=== PATIENT | female | born 1995 | race Caucasian/White ===

== ENCOUNTER 2018-05-03 14:49 | Emergency (ER) | payer OTHER ==
--- OUTSIDE RECORDS SUMMARY | 2018-05-03 15:08 | XMS REPORT | Continuity of Care Document ---
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 Family History Description No Information Available Social History Type Date Description Comments Sex Unknown ETOH Use Rarely consumes alcohol Tobacco Use Start: Unknown Heavy tobacco smoker (more than 10 cigarettes/day) Smoking Status Reviewed: 04/15/18 Heavy tobacco smoker (more than 10 cigarettes/day) Allergies, Adverse Reactions, Alerts Date Description Reaction Status Severity Comments 12/09/2017 Dayquil Cough & Congestion Active 12/09/2017 NKDA Inactive Medications Medication Date Status Form Strength Qnty SIG Indications Ordering Provider Vimpat 04/15/19 Active Tablets 100mg 120tabs 2 by mouth G40.909 Jomar 19 twice a MD [place] day IUD Active Unknown 00 control Ibuprofen Active Capsules 200mg as needed Unknown 00 Vimpat 01/16/20 Hx Tablets 50mg 90tabs 1 in the G40.219 Jomar 18 - morning MD [place] 04/15/19 and 2 at 19 night Vimpat 12/10/19 Hx Tablets 50mg 120tabs 1 in in G40.219 Jomar 18 - the MD [place] 01/14/20 morning 18 for 1 week then 1 in in the morning and 1 in at night for a week then 1 in in the morning and 2 at night Vimpat 06/15/19 Hx Tablets 100mg 60tabs 1 tablet G40.909 Jomar 18 - by mouth MD [place] 04/15/19 twice 19 daily Immunizations Description No Information Available Vital Signs Date Vital Result Comment 04/15/2018 10:25am Height 65 inches 5'5" Weight 152.00 lb Heart Rate 66 /min BP Systolic 122 mmHg BP Diastolic 70 mmHg BMI (Body Mass Index) 25.3 kg/m2 12/09/2017 3:19pm Height 65 inches 5'5" Weight 155.00 lb Heart Rate 62 /min BP Systolic 106 mmHg BP Diastolic 64 mmHg BMI (Body Mass Index) 25.8 kg/m2 Results Description No Information Available Procedures Date Code Description Status 12/11/2017 25890 EEG Recording Awake & Drowsy Completed Encounters Type Date Location Provider Dx Diagnosis Office Visit 12/09/2017 [facility] Jomar Magana G40.219 Local-rel 3:00p symptc epi w cmplx part seiz, ntrct, w/o stat epi Plan of Treatment Future Appointment(s):07/14/2018 4:00 pm - Jomar Magana MD at [id number]/15/2018 - Jomar Magana MDG40.219 Localization- related (focal) (partial) symptomatic epilepsyComments:Discussed with her that she has difficult to control seizures most likely focal and will increase vimpat to 200mg twice a day but am concerned that she will have perhaps worse side effects with this.If this happens will perhaps try trileptal next and discussed that I think there is a fairly good chance that she will not get complete seizure control on medication and that we need to prove what typeof seizures she is having and where they are coming from and will speak to Dr Washington arrange for video eeg and to see DR Washington. If the seizures are not coming from speech area she may e a candidate forsurgery in the next year or two if medications do not work.Follow up:3 MONTHS
[2018-05-03] MEDS ORDERED: Morphine INJ* 2 MG/ML 1 ML SYRINGE (TWO MG - NEW SYRINGE VERSION) IV ONE (18:25)
[2018-05-03] MEDS ORDERED: Ondansetron INJ* 2 MG/ML VIAL IV ONE (18:25)
[2018-05-03] MEDS ORDERED: Morphine 4 MG/ML VIAL (1 ml) 4 MG/ML VIAL ONE (18:30)
[2018-05-03 18:38] LABS: ABS Basophils 0 10^3/ul (0-0.2); ABS Eosinophils 0.2 10^3/ul (0-0.6); ABS Lymphocytes 3.2 10^3/ul (1.0-4.8); ABS Monocytes 0.5 10^3/ul (0-0.8); ABS Neutrophils 4.4 10^3/ul (1.5-7.7); ABS Nucleated RBC 0 10^3/ul; Hematocrit 43 % (33-41); Hemoglobin 14.4 g/dL (12.0-16.0); Lymphocyte % 38.8 %; Mean Corpuscular HGB Conc 34 g/dL (31-36); Mean Corpuscular Hemoglobin 30 pg (27-31); Mean Corpuscular Volume 88 fL (80-97); Mean Platelet Volume 10.6 fL (7.4-10.4); Nucleated Red Blood Cells % 0.1; Platelet Count 184 10^3/uL (150-450); Red Blood Count 4.83 10^6 /uL (3.70-4.87); Red Cell Distribution Width 14 % (10.5-15); White Blood Count 8.4 10^3/uL (3.5-10.8)
[2018-05-03 18:55] LABS: Urine Appearance Turbid; Urine Bilirubin Negative (Negative); Urine Blood Negative (Negative); Urine Color Amber; Urine Glucose Negative (Negative); Urine Ketones Negative (Negative); Urine Nitrite Negative (Negative); Urine Protein Negative (Negative); Urine Specific Gravity 1.025 (1.010-1.030); Urine Urobilinogen Negative (Negative)
[2018-05-03 18:57] LABS: ALT 14 U/L (7-52); AST 16 U/L (13-39); Albumin/Globulin Ratio 1.5 (1-3); Alkaline Phosphatase 69 U/L (34-104); Anion Gap 7 mmol/L (2-11); BUN/Creatinine Ratio 19.7 (8-20); Blood Urea Nitrogen 13 mg/dL (6-24); C Reactive Protein < 1.00 mg/L (<8.01); CO2 Carbon Dioxide 25 mmol/L (22-32); Chloride 108 mmol/L (101-111); EGFR African American 136.8 (>60); EGFR Non-African American 113.1 (>60); Globulin 2.6 g/dL (2-4); Glucose 84 mg/dL (70-100); Potassium 3.9 mmol/L (3.5-5.0); Sodium 140 mmol/L (135-145); Total Protein 6.6 g/dL (6.4-8.9)
[2018-05-03 19:02] LABS: HCG Pregnancy < 0.60 mIU/mL
[2018-05-03] MEDS ORDERED: Iohexol 300* (CONTRAST) 10 ML SDV IV ONE (19:43)
--- NOTE | 2018-05-03 21:45 | ED ---
GI/ HPI - HPI Summary HPI Summary: 22 year old female presents with right lower quadrant pain for the past couple days. She started in right upper quadrant and moved to right lower quadrant. She admits occasional nausea but no vomiting. She did have looser stools. No flank pain. No urinary symptoms. Denies any abnormal vaginal discharge. She states that she had a low-grade fever. States her symptoms are getting worse for past day. Pain is worse with movement. She hasn't taking anything for her symptoms. Has no medical conditions. No previous belly surgery. - History of Current Complaint Chief Complaint: EDAbdPain Time Seen by Provider: 05/03/18 18:19 Stated Complaint: EXTREME PAIN IN RIGHT QUADRANT PER PT Hx Last Menstrual Period: one month ago Pain Intensity: 9 - Allergy/Home Medications Allergies/Adverse Reactions: Allergies Allergy/AdvReac Type Severity Reaction Status Date / Time No Known Allergies Allergy Verified 05/03/18 15:02 Home Medications: Home Medications Lacosamide TAB* [Vimpat TAB*] 400 mg PO BID 05/03/18 [History Confirmed 05/03/18 ] PMH/Surg Hx/FS Hx/Imm Hx Endocrine/Hematology History: Denies: Hx Diabetes Cardiovascular History: Denies: Hx Hypertension History: Denies: Hx Renal Disease Infectious Disease History: No Infectious Disease History: Denies: Traveled Outside the [place] in Last 30 Days - Family History Known Family History: Positive: Non-Contributory - Social History Alcohol Use: None Substance Use Type: Reports: None Smoking Status (MU): Light Every Day Tobacco Smoker Review of Systems Negative: Fever Negative: Chest Pain Negative: Shortness Of Breath Positive: Abdominal Pain, Nausea. Negative: Vomiting, Diarrhea All Other Systems Reviewed And Are Negative: Yes Physical Exam Triage Information Reviewed: Yes Vital Signs On Initial Exam: Initial Vitals Temp Pulse Resp BP Pulse Ox 98 F 79 16 120/75 99 05/03/18 15:00 05/03/18 15:00 05/03/18 15:00 05/03/18 15:00 05/03/18 15:00 Vital Signs Reviewed: Yes Appearance: Positive: Well-Appearing Skin: Positive: Warm, Dry Head/Face: Positive: Normal Head/Face Inspection Eyes: Positive: Normal, Conjunctiva Clear ENT: Positive: Pharynx normal Respiratory/Lung Sounds: Positive: Clear to Auscultation, Breath Sounds Present Cardiovascular: Positive: Normal, RRR Abdomen Description: Positive: Soft, Other: - tenderness RLQ, neg rovsings Bowel Sounds: Positive: Present Musculoskeletal: Positive: Normal Neurological: Positive: Normal Psychiatric: Positive: Normal Diagnostics - Vital Signs Vital Signs Temp Pulse Resp BP Pulse Ox 05/03/18 21:25 74 110/69 99 05/03/18 21:06 98.3 F 73 100/75 98 05/03/18 21:03 82 99 05/03/18 20:25 66 94/57 98 05/03/18 20:00 69 98 05/03/18 19:55 64 102/64 97 05/03/18 19:25 67 105/59 98 05/03/18 19:00 72 99 05/03/18 18:57 87 99 05/03/18 18:55 72 115/57 99 05/03/18 18:51 18 05/03/18 17:42 99.7 F 73 16 107/70 100 05/03/18 15:00 98 F 79 16 120/75 99 - Laboratory Lab Results: Lab Results 05/03/18 05/03/18 05/03/18 Range/Units 18:27 18:27 18:45 WBC 8.4 (3.5-10.8) 10^3/uL RBC 4.83 (3.70-4.87) 10^6 /uL Hgb 14.4 (12.0-16.0) g/dL Hct 43 H (33-41) % MCV 88 (80-97) fL MCH 30 (27-31) pg MCHC 34 (31-36) g/dL RDW 14 (10.5-15) % Plt Count 184 (150-450) 10^3/uL MPV 10.6 H (7.4-10.4) fL Neut % (Auto) 52.6 % Lymph % (Auto) 38.8 % [place] % (Auto) 6.1 % Eos % (Auto) 2.0 % Baso % (Auto) 0.5 % Absolute Neuts (auto) 4.4 (1.5-7.7) 10^3/ul Absolute Lymphs (auto) 3.2 (1.0-4.8) 10^3/ul Absolute Monos (auto) 0.5 (0-0.8) 10^3/ul Absolute Eos (auto) 0.2 (0-0.6) 10^3/ul Absolute Basos (auto) 0 (0-0.2) 10^3/ul Absolute Nucleated RBC 0 10^3/ul Nucleated RBC % 0.1 Sodium 140 (135-145) mmol/L Potassium 3.9 (3.5-5.0) mmol/L Chloride 108 (101-111) mmol/L Carbon Dioxide 25 (22-32) mmol/L Anion Gap 7 (2-11) mmol/L BUN 13 (6-24) mg/dL Creatinine 0.66 (0.51-0.95) mg/dL Est GFR ( Amer) 136.8 (>60) Est GFR (Non-Af Amer) 113.1 (>60) BUN/Creatinine Ratio 19.7 (8-20) Glucose 84 (70-100) mg/dL Calcium 9.0 (8.6-10.3) mg/dL Total Bilirubin 0.40 (0.2-1.0) mg/dL AST 16 (13-39) U/L ALT 14 (7-52) U/L Alkaline Phosphatase 69 (34-104) U/L C-Reactive Protein < 1.00 (<8.01) mg/L Total Protein 6.6 (6.4-8.9) g/dL Albumin 4.0 (3.2-5.2) g/dL Globulin 2.6 (2-4) g/dL Albumin/Globulin Ratio 1.5 (1-3) Lipase 17 (11.0-82.0) U/L Beta HCG, Quant < 0.60 mIU/mL Urine Color [place] Urine Appearance Turbid Urine pH 7.0 (5-9) Ur Specific [place] 1.025 (1.010-1.030) Urine Protein Negative (Negative) Urine Ketones Negative (Negative) Urine Blood Negative (Negative) Urine Nitrate Negative (Negative) Urine Bilirubin Negative (Negative) Urine Urobilinogen Negative (Negative) Ur Leukocyte Esterase Negative (Negative) Urine Glucose Negative (Negative) Result Diagrams: 05/03/18 18:27 05/03/18 18:27 Lab Statement: Any lab studies that have been ordered have been reviewed, and results considered in the medical decision making process. - CT abd CT Interpretation Completed By: Radiologist Summary of CT Findings: IMPRESSION: Right small follicular ovarian cysts. No additional findings to correlate with. patient's symptomatology. Specifically no appendicitis. - Ultrasound No standard instances Ultrasound Interpretation Completed By: Radiologist Summary of Ultrasound Findings: IMPRESSION: #. Negative RIGHT upper quadrant ultrasound with incomplete distention of the gallbladder. mildly limiting assessment. #. Images through the RIGHT lower quadrant fail to demonstrate the appendix limiting. assessment for appendicitis. No RIGHT lower quadrant free fluid or visible. lymphadenopathy. Re-Evaluation - Re-Evaluation First Eval Change: Improved Comment: pain better Second Eval Re-Evaluation Time: 22:12 Change: Unchanged Comment: discussed getting an ultrasound again and patient declined, warned possibility missing ovarian torison and patient understand risk GIGU Course/Dx - Course Course Of Treatment: 22 year old female presents with right lower quadrant pain for the past couple days. She started in right upper quadrant and moved to right lower quadrant. She admits occasional nausea but no vomiting. She did have looser stools. No flank pain. No urinary symptoms. Denies any abnormal vaginal discharge. She states that she had a low-grade fever. States her symptoms are getting worse for past day. Pain is worse with movement. She hasn 't taking anything for her symptoms. Has no medical conditions. No previous belly surgery. On exam tenderness the right lower quadrant. wbc normal. CRP normal. Urine normal. gallbladder ultrasound normal. appendix ultrasound appendix not seen. CT shows ovarian cyst. discussed getting transvaginal ultrasound and patient declined. told to take tyenlol or ibuprofen for pain. patient understand and agrees with plan. - Diagnoses Differential Diagnoses - Female: Appendicitis, Ovarian Cyst, Urinary Tract Infection Provider Diagnoses: Ovarian cyst Discharge - Sign-Out/Discharge Documenting (check all that apply): Patient Departure Patient Received Moderate/Deep Sedation with Procedure: No - Discharge Plan Condition: Good Disposition: HOME Patient Education Materials: Ovarian Cyst (ED) Referrals: Elisabet Estevez PA [Primary Care Provider] - Additional Instructions: Take Tylenol or ibuprofen every 6 hours for pain apply heat Follow up with primary Return to ED if develop any new or worsening symptoms - Billing Disposition and Condition Condition: GOOD Disposition: Home
[2018-05-03 22:23] VITALS: BP 99/64
== END 2018-05-03 22:22 | disposition home or self-care (01) ==
LOC: ED 14:49
DX: N83.209 Unspecified ovarian cyst, unspecified side (principal); R10.31 Right lower quadrant pain; F17.210 Nicotine dependence, cigarettes, uncomplicated; R11.0 Nausea
CPT/HCPCS: 36415; 74177; 76705; 80053; 81003; 83690; 84702; 85025; 86140; 96374; 96375; 96376; 99284; J2270; J2405; Q9967